=== PATIENT | female | born 1980 | race Caucasian/White ===

== ENCOUNTER 2024-02-29 13:28 | Emergency (ER) | payer SELFPAY ==
[~2024-02-29] VITALS: Ht 165.1 cm; Wt 80.0 kg
[2024-02-29 14:06] VITALS: O2SAT 100
[2024-02-29 14:14] VITALS: BP 89/58; PULSE 78; RESP 16; TEMP 37.00296; O2SAT 100
== END 2024-02-29 18:43 | disposition left against medical advice (07) ==
LOC: ER 13:28
DX: M54.50 Low back pain, unspecified (principal); Z53.21 Procedure and treatment not carried out due to patient leaving prior to being seen by health care provider